=== PATIENT | female | born 1990 | race American Indian/Alaskan Native ===

== ENCOUNTER 2017-06-15 18:02 | Emergency (ER) | payer OTHER ==
[2017-06-15 18:12] VITALS: BMI 31.8
[2017-06-15 18:16] VITALS: RESP 18; TEMP 98.6
[2017-06-15] MEDS ORDERED: Sodium Chloride 0.9% 500 ML IV STA (18:49)
[2017-06-15 20:15] LABS: PH,URINE 6.5 (4.7-8.0); URINE BILIRUBIN NEGATIVE (NEGATIVE); URINE BLOOD NEGATIVE (NEGATIVE); URINE GLUCOSE (UA) NEGATIVE (NEGATIVE); URINE KETONE NEGATIVE (NEGATIVE); URINE LEUKOCYTE ESTERASE NEGATIVE Leu/uL (NEGATIVE); URINE PROTEIN NEGATIVE mg/dL (<30 mg/dL); URINE UROBILINOGEN 0.2 E.U./dL (<1 E.U./dL)
[2017-06-15 20:17] LABS: URINE APPEARANCE CLEAR (CLEAR); URINE COLOR YELLOW (YELLOW)
[2017-06-15 20:18] LABS: BASO # 0.02 K/mm3 (0.0-2.0); BASO % 0.3 % (0.0-3.0); EOS # 0.1 (0.0-0.7); EOS % 2.4 % (1.5-5.0); GRAN # 2.7 (1.4-6.5); GRAN % 46.1 % (50.0-68.0); HEMATOCRIT 34.5 % (36.0-48.0); LYMPH # 2.6 (1.2-3.4); LYMPH % 43.5 % (22.0-35.0); MEAN CELL VOLUME 79.1 fl (80.0-105.0); MEAN CORPUSCULAR HGB CONC 31.6 g/dl (31.0-37.0); MEAN PLATELET VOLUME 11.5 fl (7.0-11.0); MONO # 0.5 (0.1-0.6); MONO % 7.7 % (1.0-6.0); RED CELL DISTRIBUTION WIDTH 14.2 % (11.5-14.5); WHITE BLOOD COUNT 5.9 10^3/ul (4.5-11.0)
[2017-06-15 20:27] LABS: ALB/GLOB RATIO 1.3 (1.1-1.8); ALKALINE PHOSPHATASE 93 U/L (38-126); ALT/SGPT 41 U/L (7-56); AMYLASE 73 U/L (35-125); AST/SGOT 31 U/L (14-36); BILIRUBIN,TOTAL 0.3 mg/dL (0.2-1.3); BLOOD UREA NITROGEN 14 mg/dL (7-21); CALCIUM 8.8 mg/dL (8.4-10.5); CARBON DIOXIDE 29 mmol/L (21-33); CHLORIDE 104 mmol/L (98-107); GFR AFRICAN-AMERICAN > 60; GLUCOSE,RANDOM 112 mg/dL (70-110); LIPASE 150 U/L (23-300); SODIUM 140 mmol/L (132-148); TOTAL PROTEIN 7.2 g/dL (5.8-8.3)
--- NOTE | 2017-06-15 21:15 | ED PDOC ---
Arrival/HPI - General Chief Complaint: Abdominal Pain Time Seen by Provider: 06/15/17 18:48 Historian: Patient - History of Present Illness Narrative History of Present Illness (Text): 06/15/17 26 yo female w/o significant PMHx come in for evaluation of epigastric/RUQ pain gradually developed for past 2-3 days. Pt describes pain as aching, intermittent , slightly worse after food intake, (+) nausea. Pt sts, " had similar sx in past when was diagnosed with bladder infection". Otherwise, pt denies previous illness, fever, chills, sore throat, cough, CP, SOB, dyspnea, diaphoresis, palpitation, V/D, back pain, UTi sx, hematuria, vaginal irritation or discharges. Ambulate to ED for evaluation , not in any apparent distress. Past Medical History - Provider Review Nursing Documentation Reviewed: Yes - Travel History Have you recently traveled outside US w/in the past 3 mons?: No - Past History Past History: No Previous - Infectious Disease Hx of Infectious Diseases: None - Tetanus Immunization Tetanus Immunization: Unknown - Pulmonary Hx Asthma: Yes - Psychiatric Hx Substance Use: No - Anesthesia Hx Anesthesia: No Family/Social History - Physician Review Nursing Documentation Reviewed: Yes Family/Social History: No Known Family HX Smoking Status: black&mild Hx Alcohol Use: Yes Frequency of alcohol use: Socially Hx Substance Use: No Allergies/Home Meds Allergies/Adverse Reactions: Allergies No Known Allergies Allergy (Verified 06/15/17 18:12) Home Medications: Home Meds Medication Instructions Recorded Confirmed No Known Home Med 06/15/17 06/15/17 Review of Systems - Review of Systems Constitutional: Normal Eyes: Normal ENT: Normal Respiratory: Normal Cardiovascular: Normal Gastrointestinal: Abdominal Pain, Nausea. absent: Stool Changes, Diarrhea, Vomiting, Appetite Changes, Hematochezia, Hematemesis, Food Intolerance Genitourinary Female: Normal. absent: Dysuria, Frequency, Hematuria Musculoskeletal: Normal Skin: Normal Neurological: Normal Endocrine: Normal Hemo/Lymphatic: Normal Psychiatric: Normal Physical Exam Vital Signs Temp Pulse Resp BP Pulse Ox 06/15/17 23:24 73 18 188/72 H 99 06/15/17 21:41 71 18 117/72 100 06/15/17 18:16 98.6 F 83 18 111/76 99 Temperature: Afebrile Blood Pressure: Normal Pulse: Regular Respiratory Rate: Normal Appearance: Positive for: Well-Appearing, Non-Toxic, Comfortable Pain Distress: None Mental Status: Positive for: Alert and Oriented X 3 - Systems Exam Head: Present: Normocephalic Conjunctiva: Present: Normal Mouth: Present: Moist Mucous Membranes Neck: Present: Trachea Midline Respiratory/Chest: Present: Clear to Auscultation, Good Air Exchange. No: Respiratory Distress, Accessory Muscle Use Cardiovascular: Present: Regular Rate and Rhythm, Normal S1, S2. No: Murmurs Abdomen: Present: Tenderness (mild epigastric and RUQ tenderness), Normal Bowel Sounds. No: Distention, Peritoneal Signs, Rebound, Guarding Back: No: CVA Tenderness Upper Extremity: Present: Normal ROM Lower Extremity: Present: Normal ROM. No: Edema, Tenderness, Swelling Neurological: Present: GCS=15, Speech Normal Skin: Present: Warm, Dry, Normal Color. No: Rashes Psychiatric: Present: Alert, Oriented x 3 Medical Decision Making ED Course and Treatment: 06/15/17 21:16 On re-evaluation, pt resting comfortably in bed, not in any apparent distress. Afebrile, hemodynamicaly stable. Non-toxic. Abd: benign, (-) guarding, (-) rebound. Back: (-) CVA tenderness. Blood work review, mild anemia noted, no other acute abnormalities. Pt await for US. US called, will be performed by on-call tech. 06/15/17 22:50 On re-eval, pt is afebrile, hemodynamicaly stable. non-toxic, tolerate Po well in ED. Abd: benign, (-) guarding, (-) rebound. back: (-) CVA tenderness. Imaging review and appears normal. Pt has clinical findings c/w epigastric pain. Pt advised and ref. to f/u with PMD, GI in 2-3 days for re-eval. return to ED if any worsening or new changes. - Lab Interpretations Lab Results: 06/15/17 20:01 06/15/17 20:01 Lab Results 06/15/17 20:01: Sodium 140, Potassium 4.0, Chloride 104, Carbon Dioxide 29, Anion Gap 11, BUN 14, Creatinine 0.8, Est GFR ( Amer) > 60, Est GFR (Non- Af Amer) > 60, Random Glucose 112 H, Calcium 8.8, Total Bilirubin 0.3, AST 31, ALT 41, Alkaline Phosphatase 93, Total Protein 7.2, Albumin 4.0, Globulin 3.2, Albumin/Globulin Ratio 1.3, Amylase 73, Lipase 150 06/15/17 20:01: WBC 5.9, RBC 4.36, Hgb 10.9 L, Hct 34.5 L, MCV 79.1 L, MCH 25.0 , MCHC 31.6, RDW 14.2, Plt Count 215, MPV 11.5 H, Gran % 46.1 L, Lymph % (Auto) 43.5 H, [place] % (Auto) 7.7 H, Eos % (Auto) 2.4, Baso % (Auto) 0.3, Gran # 2.70, Lymph # 2.6, [place] # 0.5, Eos # 0.1, Baso # 0.02 06/15/17 20:01: Urine Color Yellow, Urine Appearance Clear, Urine pH 6.5, Ur Specific [place] 1.020, Urine Protein Negative, Urine Glucose (UA) Negative, Urine Ketones Negative, Urine Blood Negative, Urine Nitrate Negative, Urine Bilirubin Negative, Urine Urobilinogen 0.2, Ur Leukocyte Esterase Negative, Urine HCG, Qual Negative Interpretation: No clinic. lab abnormalty - RAD Interpretation Narrative RAD Interpretations (Text): 06/16/17 00:57 [facility] Division of Radiology [address] [place] [address] Tel. no. Patient Name: ROSCOE CONWAY Pt. Address: [address] [place] [address] Rec #: [id number] [place] [address]: Izzy Friend Pt Order Location: ED : 1990 Female Age: 26 Order #: [id number] Reason for exam: RUQ PAIN Ultrasound GALL BLADDER Exam Date: 06/15/17 This imaging exam was performed at [facility] EXAM: US Abdomen Limited, Right Upper Quadrant CLINICAL HISTORY: 26 years old, female; Pain; Abdominal pain; Generalized; Additional info: Ruq pain TECHNIQUE: Real-time ultrasound of the right upper quadrant with image documentation. COMPARISON: No relevant prior studies available. FINDINGS: Liver: Fatty infiltration. No mass. No intrahepatic ductal dilatation. Gallbladder: No gallstones. No wall thickening. No pericholecystic fluid. No sonographic Mueller's sign. Common bile duct: No dilatation. No stones. Pancreas: Obscured by overlying bowel gas. Right kidney: Normal echogenicity. No hydronephrosis. IMPRESSION: 1. No acute findings. 2. Non-acute findings are described above. Dictated By: Gustavo Bergman MD Dictated Date/Time: 06/15/172255 Signed By: Gustavo Bergman MD Date Signed: 2255 Transcribed By: ITZ Transcribe Date/Time : 06/15/172255 ACYP02/VRD Radiology Orders: 06/15/17 18:50 GALL BLADDER [US] Stat EXAM: US Abdomen Limited, Right Upper Quadrant CLINICAL HISTORY: 26 years old, female; Pain; Abdominal pain; Generalized; Additional info: Ruq pain TECHNIQUE: Real-time ultrasound of the right upper quadrant with image documentation. COMPARISON: No relevant prior studies available. FINDINGS: Liver: Fatty infiltration. No mass. No intrahepatic ductal dilatation. Gallbladder: No gallstones. No wall thickening. No pericholecystic fluid. No sonographic Mueller's sign. Common bile duct: No dilatation. No stones. Pancreas: Obscured by overlying bowel gas. Right kidney: Normal echogenicity. No hydronephrosis. IMPRESSION: 1. No acute findings. 2. Non-acute findings are described above. Thank you for allowing us to participate in the care of your patient. Dictated and Authenticated by: Gustavo Bergman MD 06/15/2017 10:56 PM Eastern Time ([place] & [place]) - Medication Orders Current Medication Orders: Discontinued Medications Famotidine (Pepcid) 20 mg IVP STAT STA Stop: 06/15/17 18:52 Last Admin: 06/15/17 20:01 Dose: 20 mg IVP Administration Document 06/15/17 20:01 OCS (Rec: 06/15/17 20:01 OCS [id number]) Charges for Administration # of IVP Administrations 1 Sodium Chloride (Sodium Chloride 0.9%) 500 mls @ 1,000 mls/hr IV .Q30M STA Stop: 06/15/17 19:18 Last Admin: 06/15/17 20:01 Dose: 1,000 mls/hr eMAR Start Stop Document 06/15/17 20:01 OCS (Rec: 06/15/17 20:01 OCS [id number]) Intravenous Solution Start Date 06/15/17 Start Time 20:01 Ondansetron HCl (Zofran Inj) 4 mg IVP ONCE ONE Stop: 06/15/17 18:52 Last Admin: 06/15/17 20:01 Dose: 4 mg IVP Administration Document 06/15/17 20:01 OCS (Rec: 06/15/17 20:01 [id number] Charges for Administration # of IVP Administrations 1 Disposition/Present on Arrival - Present on Arrival Any Indicators Present on Arrival: No History of DVT/PE: No History of Uncontrolled Diabetes: No Urinary Catheter: No History of Decub. Ulcer: No History Surgical Site Infection Following: None - Disposition Have Diagnosis and Disposition been Completed?: Yes Diagnosis: Epigastric abdominal pain Disposition: HOME/ ROUTINE Disposition Time: 22:55 Patient Plan: Discharge Condition: STABLE Discharge Instructions (ExitCare): Epigastric Pain (ED) Additional Instructions: Follow up with PMD, GI in 2-3 days for re-evaluation. return to ED if any worsening or new changes. Referrals: [facility] [place] [Outside] - Follow up with primary Tarik Camarena DO [Staff Provider] - Follow up with primary Forms: [employer] (Bulgarian)
--- NOTE | 2017-06-15 22:56 | US ---
EXAM: US Abdomen Limited, Right Upper Quadrant CLINICAL HISTORY: 26 years old, female; Pain; Abdominal pain; Generalized; Additional info: Ruq pain TECHNIQUE: Real-time ultrasound of the right upper quadrant with image documentation. COMPARISON: No relevant prior studies available. FINDINGS: Liver: Fatty infiltration. No mass. No intrahepatic ductal dilatation. Gallbladder: No gallstones. No wall thickening. No pericholecystic fluid. No sonographic Mueller's sign. Common bile duct: No dilatation. No stones. Pancreas: Obscured by overlying bowel gas. Right kidney: Normal echogenicity. No hydronephrosis. IMPRESSION: 1.No acute findings. 2.Non-acute findings are described above.
[2017-06-15 23:24] VITALS: BP 188/72; PULSE 73; O2SAT 99
== END 2017-06-15 23:25 | disposition home or self-care (01) ==
LOC: ED 18:02
DX: R10.13 Epigastric pain (principal)
CPT/HCPCS: 76705; 80053; 81003; 82150; 83690; 84703; 85025; 96374; 96375; 99283; J2405; J7040

== ENCOUNTER 2017-08-08 18:33 | Emergency (ER) | payer SELFPAY ==
[2017-08-08 18:33] VITALS: BMI 31.8
[2017-08-08 19:01] VITALS: TEMP 98.8
[2017-08-08] MEDS ORDERED: cefTRIAXone (Rocephin) 250 mg Inj IM STA (19:14)
--- NOTE | 2017-08-08 19:41 | ED PDOC ---
Arrival/HPI - General Historian: Patient - General Chief Complaint: Female Genitourinary Time Seen by Provider: 08/08/17 18:50 - History of Present Illness Narrative History of Present Illness (Text): 08/08/17 19:38 27-year-old female presents to the with a one-week history of irritation and burning to the vagina. Patient states she is sexually active. Patient states she 's had slight white discharge. She denies dysuria or urinary frequency or urgency. Patient states she's noticed an irritation just below the clitoris. Patient states she's noticed a small ulceration that has not been improving. She denies fevers or chills. No chest pain or shortness of breath. No dizziness or weakness. Patient states she's been sexually active with 1 partner for a long time. Denies prior history of herpes. No other complaints. (Debra Herrera) Past Medical History - Provider Review Nursing Documentation Reviewed: Yes - Travel History Have you recently traveled outside [place] w/in the past 3 mons?: No - Past History Past History: No Previous - Infectious Disease Hx of Infectious Diseases: None - Tetanus Immunization Tetanus Immunization: Unknown - Pulmonary Hx Asthma: Yes (Patient states that it has not bothered her in a long time) - Musculoskeletal/Rheumatological Hx Falls: No - Psychiatric Hx Substance Use: No - Surgical History Other/Comment: scraping of the uterine lining 07/2017 - Anesthesia Hx Anesthesia: Yes Hx Anesthesia Reactions: No Hx Malignant Hyperthermia: No - Suicidal Assessment Feels Threatened In Home Enviroment: No Family/Social History - Physician Review Nursing Documentation Reviewed: Yes Family/Social History: Unknown Family HX Smoking Status: Current Some Days Smoker Hx Alcohol Use: Yes Frequency of alcohol use: Socially Hx Substance Use: No Allergies/Home Meds Allergies/Adverse Reactions: Allergies No Known Allergies Allergy (Verified 08/08/17 19:01) Review of Systems - Review of Systems Constitutional: absent: Fatigue, Fevers Respiratory: absent: SOB, Cough Cardiovascular: absent: Chest Pain, Palpitations Gastrointestinal: absent: Abdominal Pain, Nausea, Vomiting Genitourinary Female: Vaginal Discharge, Other (vaginal lesions). absent: Dysuria, Frequency, Hematuria Musculoskeletal: absent: Arthralgias, Back Pain, Neck Pain Skin: Skin Lesions. absent: Pruritis Neurological: absent: Headache, Dizziness Psychiatric: absent: Anxiety, Depression Physical Exam Vital Signs Reviewed: Yes Temperature: Afebrile Blood Pressure: Normal Pulse: Regular Respiratory Rate: Normal Appearance: Positive for: Well-Appearing, Non-Toxic, Comfortable Pain Distress: None Mental Status: Positive for: Alert and Oriented X 3 - Systems Exam Head: Present: Atraumatic Mouth: Present: Moist Mucous Membranes Neck: Present: Normal Range of Motion Respiratory/Chest: Present: Clear to Auscultation, Good Air Exchange. No: Respiratory Distress, Accessory Muscle Use Cardiovascular: Present: Regular Rate and Rhythm, Normal S1, S2. No: Murmurs Abdomen: No: Tenderness, Distention, Rebound, Guarding Genitourinary/Pelvic Exam: Present: Normal External Genitalia, Vaginal Discharge (white/yellow vaginal discharge), Vaginal Lesions (there is a small ulceration noted just inferior to the clitoral cortes. no surrounding erythema; + tenderness. ), Cervical os Closed, Other ([facility]). No : Vaginal Bleeding, Adenexal Tenderness, Adenexal Mass, Cervical Motion Tendernes, Odor Back: Present: Normal Inspection. No: CVA Tenderness, Midline Tenderness, Paraspinal Tenderness Neurological: Present: GCS=15 Skin: Present: Warm, Dry Psychiatric: Present: Alert, Oriented x 3 Vital Signs Temp Pulse Resp BP Pulse Ox 08/08/17 20:30 89 16 112/87 100 08/08/17 18:54 98.8 F 95 H 19 105/66 99 Medical Decision Making ED Course and Treatment: 08/08/17 19:46 Patient is nontoxic well-appearing in no distress with stable vital signs with with vaginal ulceration; concerning for herpes lesion; will cover with acyclovir 400mgpo pt with white/yellow vaginal discharge. Ceftriaxone 250 mg IM Zithromax 1 g p.o. given Gonorrhea and Chlamydia cultures are pending. The long in-depth conversation with the patient regarding genital herpes and STDs. Advised patient to refrain from sex for 10 days followup with the primary care physician within the next 2 days or return if symptoms worsen persist or if new symptoms develop. advised patient to f/u with DISASTER OR DAMAGE CONTROL SPECIALIST for further workup for stds. Patient verbalizes understanding of discharge instructions and need for immediate followup. all aspects of this case were discussed the attending of record. Impression: vaginal lesion, herpes, vaginal discharge Follow up primary care physician within the next 2 days Follow up with the DISASTER OR DAMAGE CONTROL SPECIALIST within the next 2 days. motrin every 6 hours as needed for pain. acyclovir; 1 tablet 3 times daily x 7 days. Return if symptoms worsen persist or if new symptoms develop. (Debra Herrera ) - Medication Orders Current Medication Orders: Discontinued Medications Acyclovir (Zovirax) 400 mg PO STAT STA PRN Reason: Protocol Stop: 08/08/17 19:15 Last Admin: 08/08/17 20:00 Dose: 400 mg Azithromycin (Zithromax) 1,000 mg PO STAT STA PRN Reason: Protocol Stop: 08/08/17 19:15 Last Admin: 08/08/17 20:00 Dose: 1,000 mg Ceftriaxone Sodium (Rocephin) 250 mg IM STAT STA PRN Reason: Protocol Stop: 08/08/17 19:15 Last Admin: 08/08/17 20:00 Dose: 250 mg IM Administration Charges Document 08/08/17 20:00 HI (Rec: 08/08/17 20:12 HI [id number]) Injection Site MAR Injection Site Right Gluteus Rob Charges for Administration # of IM Administrations 1 Disposition/Present on Arrival - Present on Arrival Any Indicators Present on Arrival: No History of DVT/PE: No History of Uncontrolled Diabetes: No Urinary Catheter: No History of Decub. Ulcer: No History Surgical Site Infection Following: None - Disposition Have Diagnosis and Disposition been Completed?: Yes Disposition Time: 19:55 Patient Plan: Discharge - Disposition Diagnosis: Vaginal lesion, Vaginal discharge Disposition: HOME/ ROUTINE Condition: GOOD Additional Instructions: Follow up primary care physician within the next 2 days Follow up with the DISASTER OR DAMAGE CONTROL SPECIALIST within the next 2 days. motrin every 6 hours as needed for pain. acyclovir; 1 tablet 3 times daily x 7 days. Return if symptoms worsen persist or if new symptoms develop. Prescriptions: Acyclovir [Zovirax] 400 mg PO TID #21 tab Ibuprofen [Motrin] 600 mg PO Q6H PRN #20 tab PRN Reason: pain/fever reduction Referrals: Ina Salazar MD [Staff Provider] - [facility] - Follow up with primary Za Rodriguez MD [Staff Provider] - Follow up with primary Forms: [employer] (Armenian), WORK NOTE
[2017-08-08 20:32] VITALS: BP 112/87; PULSE 89; RESP 16; O2SAT 100
== END 2017-08-08 20:30 | disposition home or self-care (01) ==
LOC: ED 18:33
DX: N89.8 Other specified noninflammatory disorders of vagina (principal)
CPT/HCPCS: 87491; 87591; 96372; 99283; J0696; J8499

== ENCOUNTER 2017-10-22 17:04 | Emergency (ER) | payer OTHER ==
[2017-10-22 19:42] VITALS: TEMP 98; BMI 23.6
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
[2017-10-22 21:40] VITALS: BP 115/80; PULSE 75; RESP 17; O2SAT 98
== END 2017-10-22 21:39 | disposition home or self-care (01) ==
LOC: ED 17:04
DX: M54.2 Cervicalgia (principal); M54.5 Low back pain
CPT/HCPCS: 96372; 99285; J1885